=== PATIENT | female | born 1970 | race Caucasian/White ===

== ENCOUNTER 2016-12-01 08:59 | Emergency (ER) | payer MEDICAID ==
--- NOTE | 2016-12-01 09:52 | C.PDOC ---
History Of Present Illness 46 yo female, presents with right low back pain x 3 days. 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 states pain worse with movement. no fevers , dysuria, hematuria, or other complaints. Time Seen by Provider: 12/01/16 09:30 Chief Complaint (Nursing): Back Pain Past Medical History Reviewed: Historical Data, Nursing Documentation, Vital Signs Vital Signs: Last Vital Signs Temp 98.1 F 12/01/16 10:40 Pulse 73 12/01/16 10:40 Resp 20 12/01/16 10:40 BP 109/76 12/01/16 10:40 Pulse Ox 98 12/01/16 12:09 - Medical History PMH: Arthritis Family History: States: Unknown Family Hx - Social History Hx Tobacco Use: Yes Hx Alcohol Use: No Hx Substance Use: No - Immunization History Hx Tetanus Toxoid Vaccination: No Hx Influenza Vaccination: No Hx Pneumococcal Vaccination: No Review Of Systems Except As Marked, All Systems Reviewed And Found Negative. Musculoskeletal: Positive for: Back Pain Physical Exam - Physical Exam Appears: Well, No Acute Distress Skin: Normal Color, Warm, Dry Eye(s): bilateral: Normal Inspection, PERRL, EOMI Nose: Normal Throat: Normal Neck: Normal Cardiovascular: Rhythm Regular Respiratory: Normal Breath Sounds Gastrointestinal/Abdominal: Normal Exam Back: Normal Inspection, No CVA Tenderness, No Vertebral Tenderness, Paraspinal Tenderness, Other ((-)saddle anesthesia ) Extremity: Normal ROM ED Course And Treatment O2 Sat by Pulse Oximetry: 98 Medical Decision Making Medical Decision Making: suspect msk pain. no known trauma. s/p toradol pain improved. ua with minimal blood (pt reports finishing period). no saddle ansesthesia, neuro intact, steady gait. no e/o of infection in urine. advise outpt fu and return precautions Disposition - Disposition Referrals: [facility] [Outside] [facility] [Outside] [facility] [Outside] Terrance Hernandez MD [Non-Staff] - Disposition: HOME/ ROUTINE Disposition Time: 12:00 Condition: GOOD Prescriptions: Cyclobenzaprine [Cyclobenzaprine HCl] 10 mg PO TID PRN #21 PRN Reason: Muscle Spasm Naproxen [Naprosyn] 500 mg PO BID PRN #14 tablet PRN Reason: Pain, Mild (1-3) Instructions: Acute Low Back Pain (ED) Forms: [facility] (Lao) - Clinical Impression Clinical Impression: Low back pain
[2016-12-01 10:21] LABS: RBC URINE 9 /hpf (0-3); URINE BACTERIA RARE (<OCC); URINE BILIRUBIN NEGATIVE (NEGATIVE); URINE BLOOD 1+ (NEGATIVE); URINE COLOR Yellow (YELLOW); URINE GLUCOSE (UA) NORMAL (Normal); URINE KETONE TRACE mg/dL (NEGATIVE); URINE LEUKOCYTE ESTERASE NEG Leu/uL (Negative); URINE PROTEIN NEGATIVE (NEGATIVE); WBC URINE < 1 /hpf (0-5)
[2016-12-01 10:40] VITALS: BP 109/76; PULSE 73; RESP 20; TEMP 98.1
[2016-12-01 12:10] VITALS: O2SAT 98
== END 2016-12-01 10:41 | disposition home or self-care (01) ==
LOC: C.ER 08:59
DX: M54.5 Low back pain (principal)
CPT/HCPCS: 81001; 84703; 96372; 99284; J1885

== ENCOUNTER 2017-04-03 10:16 | Emergency (ER) | payer MEDICAID ==
[2017-04-03 10:32] VITALS: O2SAT 99
[2017-04-03] MEDS ORDERED: Sodium Chloride 0.9% 1,000 ML IV ONE ×3 (10:50→14:04)
--- NOTE | 2017-04-03 10:50 | C.PDOC ---
History Of Present Illness 46 year old female presents to the ED c/o of a frontal sinus headache, fever, myalgia, nausea that started yesterday. Patient has a history of asthma but denies any asthma exacerbation. Patient did not had the flue shot this year. Patient denies vomit, diarrhea, neck pain, recent travel, sick contacts. FRONTAL SINUS SAGE, FEVER, MYALGIA, NAUSEA SINCE YEST. HO ASTHMA BUT DENIES ASTHMA EXAC. NO FLU IMM. +SINUS SHANELLE EXAM MILD DIST NONTOXIC HEENT +FRONTAL SINUS TEND W RHINORRHEA LUNGS CTA B/L NO W/R/R REMAINDE RNEG Time Seen by Provider: 04/03/17 10:46 Chief Complaint (Nursing): Flu-like Symptoms History Per: Patient History/Exam Limitations: no limitations Onset/Duration Of Symptoms: Days Current Symptoms Are (Timing): Still Present Location Of Pain: Sinus/es, Diffuse Myalgias, Headache Sick Contacts (Context): None Associated Symptoms: Fever, Nasal Congestion, Nausea Ear Symptoms: Bilateral: None Recent travel outside of the [place]: No Additional History Per: Patient Past Medical History Reviewed: Historical Data, Nursing Documentation, Vital Signs Vital Signs: Last Vital Signs Temp 98.2 F 04/03/17 14:05 Pulse 86 04/03/17 14:05 Resp 18 04/03/17 14:05 BP 88/56 L 04/03/17 14:05 Pulse Ox 99 04/03/17 14:05 - Medical History PMH: Arthritis, Osteoporosis, Rheumatoid Arthritis Surgical History: No Surg Hx Family History: States: Unknown Family Hx - Social History Hx Tobacco Use: Yes Hx Alcohol Use: No Hx Substance Use: No - Immunization History Hx Tetanus Toxoid Vaccination: Yes Hx Influenza Vaccination: No Hx Pneumococcal Vaccination: Yes Review Of Systems Constitutional: Positive for: Fever. Negative for: Chills ENT: Positive for: Nose Congestion. Negative for: Nose Discharge Cardiovascular: Negative for: Chest Pain Respiratory: Negative for: Cough, Shortness of Breath Gastrointestinal: Positive for: Nausea. Negative for: Vomiting, Abdominal Pain , Diarrhea Musculoskeletal: Negative for: Neck Pain Skin: Negative for: Rash Neurological: Positive for: Headache. Negative for: Weakness, Numbness Physical Exam - Physical Exam Appears: Non-toxic, Other (Mild distress) Skin: Normal Color, Warm, Dry Head: Atraumatic, Normacephalic, Tenderness (frontal sinus) Eye(s): bilateral: Normal Inspection, PERRL Ear(s): Bilateral: Normal Nose: Discharge, No Deformity Throat: Normal, No Erythema, No Exudate Neck: Normal ROM, Supple Chest: Symmetrical Cardiovascular: Rhythm Regular, No Murmur Respiratory: Normal Breath Sounds, No Rales, No Rhonchi, No Wheezing Extremity: Normal ROM, No Pedal Edema, No Calf Tenderness, No Deformity, No Swelling Neurological/Psych: Oriented x3, Normal Speech, Normal Cognition Gait: Steady ED Course And Treatment - Laboratory Results Result Diagrams: 04/03/17 14:35 04/03/17 14:35 O2 Sat by Pulse Oximetry: 99 (On RA) Pulse Ox Interpretation: Normal Progress - Re-Evaluation Re-evaluation Note: 04/03/17 13:24 IMPROVED COMPARED TO INITIAL BUT STILL W PERSIST DIZZY. NO UO SINCE NS 1 L BOLUS / VSS IMPROVED FROM PRIOR. WILL CONT IVF, ED OBS 04/03/17 14:05 SP REPEAT NS BOLUS. PS IMPROVED, +UO BUT STILL W RESIDUAL LIGHTHEADEDNESS. + SYMPTOMATIC ORTHOSTATIC. SBP 88. REPEAT IVF, LABS, LACTATE 04/03/17 15:23 IMPROVED - Data Reviewed Data Reviewed: Lab, Old records Medical Decision Making Medical Decision Making: Impression : frontal sinus headache, subjective fever, myalgia Plan: * IV fluids * Tamiflu 75 mg PO * Toradol 30 mg PO * Tylenol 650 mg PO * Zofran 4 mg PO Disposition Counseled Patient/Family Regarding: Studies Performed, Diagnosis, Need For Followup, Rx Given - Disposition Referrals: [facility] [Outside] [facility] [Outside] Disposition: HOME/ ROUTINE Disposition Time: 15:24 Condition: IMPROVED Prescriptions: Ibuprofen [Motrin] 600 mg PO Q6 #30 tab Ondansetron [Zofran Odt] 4 mg PO TID PRN #9 odt PRN Reason: Nausea/Vomiting Oseltamivir [Tamiflu] 75 mg PO BID #9 cap Instructions: Influenza (ED) Forms: [facility] (Korean), Work Excuse - Clinical Impression Clinical Impression: Influenza-like illness, Nausea - Scribe Statement The provider has reviewed the documentation as recorded by the Scribe Gary Melo All medical record entries made by the Scribe were at my direction and personally dictated by me. I have reviewed the chart and agree that the record accurately reflects my personal performance of the history, physical exam, medical decision making, and the department course for this patient. I have also personally directed, reviewed, and agree with the discharge instructions and disposition.
[2017-04-03] MEDS ORDERED: Sodium Chloride 0.9% 1,000 ML ONE ×2 (11:28→13:26)
[2017-04-03 14:07] VITALS: RESP 18
[2017-04-03 14:39] LABS: VENOUS BLOOD GAS BASE EXCESS -5.7 mmol/L (0.0-2.0); VENOUS BLOOD GAS PCO2 36 mmHg (40-60); VENOUS BLOOD GAS PO2 38 mm/Hg (30-55); VENOUS BLOOD PH 7.34 (7.32-7.43)
[2017-04-03 14:42] LABS: BASO # 0.1 K/uL (0.0-0.2); BASO % 0.8 % (0.0-2.0); EOS % 0.1 % (0.0-4.0); HEMOGLOBIN 11.9 g/dL (11.0-16.0); LYMPH # 1.7 K/uL (1.0-4.3); LYMPH % 17.8 % (20.0-40.0); MEAN CELL VOLUME 94.6 fL (81.0-99.0); MEAN CORPUSCULAR HGB CONC 34.9 g/dL (33.0-37.0); MONO # 0.6 K/uL (0.0-0.8); MONO % 5.8 % (0.0-10.0); NEUT # 7.2 K/uL (1.8-7.0); NEUT % 75.5 % (50.0-75.0); RBC 3.61 Mil/uL (3.80-5.20); RED CELL DISTRIBUTION WIDTH 14.3 % (11.5-14.5); WHITE BLOOD COUNT 9.5 K/uL (4.8-10.8)
[2017-04-03 14:52] LABS: BLOOD UREA NITROGEN 7 mg/dL (7-17); CALCIUM 7.4 mg/dl (8.6-10.4); GFR AFRICAN-AMERICAN > 60; GFR NON-AFRICAN AMERICAN > 60
[2017-04-03] MEDS ORDERED: Potassium Chloride 20 mEq/15 ml LIQ UD PO STA (15:01)
[2017-04-03] MEDS ORDERED: Potassium Chloride 20 mEq ER Tab PO ONE (15:14)
[2017-04-03 15:38] VITALS: BP 102/66; PULSE 80; TEMP 99.3
== END 2017-04-03 15:25 | disposition home or self-care (01) ==
LOC: C.ER 10:16
DX: J11.1 Influenza due to unidentified influenza virus with other respiratory manifestations (principal); R11.0 Nausea; E87.6 Hypokalemia
CPT/HCPCS: 80048; 82803; 85025; 96361; 96374; 96375; 99285; J1885; J2405; J7040